=== PATIENT | male | born 1955 | race African-American/Black ===

== ENCOUNTER 2018-03-15 00:41 | Inpatient (IN) | payer MEDICARE, MEDICAID ==
[~2018-03-15] VITALS: Ht 172.7 cm; Wt 102.4 kg
[~2018-03-15 00:41] MED LIST: AMLO-512 GT; HYDR25TA84 PO; METO50 GT; MULT1CAP32 PO; SIMV-260 PO
[2018-03-15 00:59] LABS: GLUCOSE,POINT OF CARE 166 MG/DL (70-110)
[2018-03-15] MEDS ORDERED: DSS100 GT (01:12)
[2018-03-15] MEDS ORDERED: BACL5TAB GT (01:12)
[2018-03-15] MEDS ORDERED: VITAD1000 GT (01:12)
[2018-03-15] MEDS ORDERED: ATOR20TA86 GT (01:12)
[2018-03-15] MEDS ORDERED: LISI-661 GT (01:12)
[2018-03-15] MEDS ORDERED: ASPI-556 GT (01:12)
[2018-03-15] MEDS ORDERED: CLON.3P TD (01:12)
[2018-03-15] MEDS ORDERED: INSLAN SQ (01:12)
[2018-03-15 01:38] LABS: BASOPHILS % (AUTO) 0.4 % (0.0-2.0); EOSINOPHILS % (AUTO) 0.2 % (1.0-6.0); LYMPHOCYTES # (AUTO) 1.5 K/uL (1.0-4.8); LYMPHOCYTES % (AUTO) 11.7 % (22.0-44.0); MEAN CORPUSCULAR HEMOGLOBIN 27.9 pg (26.0-34.0); MEAN CORPUSCULAR HGB CONC 31.8 G/dL (31.0-37.0); MEAN CORPUSCULAR VOLUME 88 fL (80-100); MONOCYTES # (AUTO) 1.3 K/uL (0.1-1.0); MONOCYTES % (AUTO) 9.7 % (2.0-9.0); NEUTROPHILS # (AUTO) 10.4 K/uL (1.8-7.7); PLATELET COUNT (AUTO) 191 K/uL (150-450); RED BLOOD CELL COUNT(AUTO) 2.63 MIL/uL (4.50-5.90); RED CELL DISTRIBUTION WIDTH 17.2 % (11.5-14.5)
[2018-03-15 01:45] LABS: HEMATOCRIT 23.2 % (41-53); HEMOGLOBIN 7.5 g/dL (13.5-17.5)
[2018-03-15 01:50] LABS: APPEARANCE,URINE CLEAR (CLEAR); BILIRUBIN,URINE NEGATIVE (NEGATIVE); GLUCOSE, URINE (UA) NEGATIVE (NEGATIVE); KETONES,URINE NEGATIVE (NEGATIVE); LEUKOCYTE ESTERASE ,URINE NEGATIVE (NEGATIVE); NITRATE,URINE NEGATIVE (NEGATIVE); OCCULT BLOOD,URINE NEGATIVE (NEGATIVE); PROTEIN,URINE SEE CONFIRM (NEGATIVE)
[2018-03-15 01:53] LABS: PROTHROMBIN TIME 10.8 SEC (9.4-11.6)
[2018-03-15 01:55] LABS: ALBUMIN 2.3 g/dL (3.4-5.0); BILIRUBIN,TOTAL 0.1 mg/dL (0.1-1.0); CALCIUM, TOTAL 8.1 mg/dL (8.8-10.5); CREATININE 2.08 mg/dL (0.60-1.30); POTASSIUM 4.2 mmol/L (3.5-5.1); TOTAL PROTEIN, SERUM 5.3 g/dL (6.4-8.2)
[2018-03-15 01:56] LABS: LACTIC ACID 1.3 mmol/L (0.4-2.0)
[2018-03-15] MEDS ORDERED: SODIUM CHLORIDE 0.9% 1,000 ML IV ONE ×3 (02:00)
[2018-03-15 02:06] LABS: SULFOSALICYLIC ACID,URINE 1+ (Negative)
[2018-03-15 02:07] LABS: BACTERIA,URINE Rare /HPF (None Seen); RBC,URINE 0-2 /HPF (0-2); WBC,URINE 0-2 /HPF (0-5)
[2018-03-15 02:08] LABS: FINE GRANULAR CASTS,URINE 0-2 /LPF (None Seen); SQUAMOUS EPITHELIAL CELL,UR None Seen /LPF (None Seen)
[2018-03-15] MEDS ORDERED: SODIUM CHLORIDE 0.45% 1,000 ML IV ONE (02:45)
[2018-03-15] MEDS ORDERED: CefTRIAXone SODIUM 1 GM in DEXTROSE 5%-WATER 10 ML IV ONE (02:45)
[2018-03-15] MEDS ORDERED: ACETAMINOPHEN 1000 MG/ISO-OSM 100 ML IV ONE (03:15)
[2018-03-15 04:57] LABS: CALCIUM, TOTAL 7.9 mg/dL (8.8-10.5); CREATININE 2.13 mg/dL (0.60-1.30); POTASSIUM 4.2 mmol/L (3.5-5.1)
[2018-03-15] MEDS ORDERED: 0.9% SODIUM CHLORIDE 10 ML SYRINGE IVP PRN ×2 (05:45→13:00)
[2018-03-15] MEDS ORDERED: ACETAMINOPHEN 325 MG TABLET PO PRN (05:45)
[2018-03-15 08:19] LABS: GLUCOSE,POINT OF CARE 143 MG/DL (70-110)
[2018-03-15 10:00] VITALS: BP 142/98
[2018-03-15 12:00] VITALS: BP 149/99
[2018-03-15 12:20] LABS: CALCIUM, TOTAL 8.7 mg/dL (8.8-10.5); CREATININE 2.53 mg/dL (0.60-1.30); MAGNESIUM 2.8 mg/dL (1.80-2.40); PHOSPHORUS 4.2 mg/dL (2.5-4.9); POTASSIUM 4.2 mmol/L (3.5-5.1)
[2018-03-15] MEDS ORDERED: LISI-662 GT (12:54)
[2018-03-15] MEDS ORDERED: ONDANSETRON HCL 4 MG/2 ML VIAL IVP PRN (13:00)
[2018-03-15] MEDS: PANTOPRAZOLE SODIUM 40 MG/VIAL IVP SCH (13:14)
[2018-03-15] MEDS: SODIUM CHLORIDE 0.45% 1,000 ML IV SCH ×2 (13:15→20:43)
[2018-03-15] MEDS ORDERED: VANCOMYCIN HCL 1.5 GM in DEXTROSE 5%-WATER 250 ML IV ONE (13:30)
[2018-03-15] MEDS ORDERED: VANCOMYCIN HCL 1 GM/D5% WATER 200 ML IV ONE (13:30)
[2018-03-15] MEDS: PIPERACILLIN SODIUM/TAZOBACTAM 2.25 GM in DEXTROSE 5%-WATER 50 ML IV SCH ×2 (14:35→20:43)
[2018-03-15] MEDS: IPRATROPIUM BROMIDE 0.5 MG/2.5 ML NEB SOLUTION NEB SCH ×2 (14:47→19:40)
[2018-03-15] MEDS: ALBUTEROL SULFATE 2.5 MG/0.5 ML NEB SOLUTION NEB SCH ×2 (14:47→19:40)
[2018-03-15] MEDS ORDERED: SODIUM CHLORIDE 0.9% 250 ML IV ONE (15:10)
[2018-03-15 16:00] VITALS: BP 157/103
[2018-03-15] MEDS: HEPARIN SODIUM,PORCINE 5,000 UNITS/ML VIAL SQ SCH ×2 (16:03→23:59)
[2018-03-15 19:26] LABS: CALCIUM, TOTAL 8.2 mg/dL (8.8-10.5); CREATININE 2.8 mg/dL (0.60-1.30); POTASSIUM 3.8 mmol/L (3.5-5.1)
[2018-03-15 20:00] VITALS: BP 135/78
[2018-03-16] VITALS (16 sets, daily range): BP systolic 120–166; BP diastolic 72–90
[2018-03-16] MEDS: ALBUTEROL SULFATE 2.5 MG/0.5 ML NEB SOLUTION NEB SCH ×4 (01:51→20:09)
[2018-03-16] MEDS: IPRATROPIUM BROMIDE 0.5 MG/2.5 ML NEB SOLUTION NEB SCH ×4 (01:51→20:09)
[2018-03-16] MEDS: PIPERACILLIN SODIUM/TAZOBACTAM 2.25 GM in DEXTROSE 5%-WATER 50 ML IV SCH ×4 (02:11→20:50)
[2018-03-16 05:00] LABS: BASOPHILS % (AUTO) 0.8 % (0.0-2.0); EOSINOPHILS % (AUTO) 0 % (1.0-6.0); LYMPHOCYTES # (AUTO) 3.3 K/uL (1.0-4.8); LYMPHOCYTES % (AUTO) 13.9 % (22.0-44.0); MEAN CORPUSCULAR HEMOGLOBIN 27.9 pg (26.0-34.0); MEAN CORPUSCULAR HGB CONC 31.4 G/dL (31.0-37.0); MEAN CORPUSCULAR VOLUME 89 fL (80-100); MONOCYTES # (AUTO) 1.7 K/uL (0.1-1.0); MONOCYTES % (AUTO) 7.1 % (2.0-9.0); NEUTROPHILS # (AUTO) 18.5 K/uL (1.8-7.7); NEUTROPHILS % (AUTO) 78.2 % (40.0-70.0); PLATELET COUNT (AUTO) 192 K/uL (150-450); RED BLOOD CELL COUNT(AUTO) 1.98 MIL/uL (4.50-5.90); RED CELL DISTRIBUTION WIDTH 18.1 % (11.5-14.5)
[2018-03-16 05:11] LABS: ALBUMIN 2.4 g/dL (3.4-5.0); BILIRUBIN,TOTAL 0.2 mg/dL (0.1-1.0); CALCIUM, TOTAL 8.1 mg/dL (8.8-10.5); CREATININE 3.19 mg/dL (0.60-1.30); POTASSIUM 3.9 mmol/L (3.5-5.1); TOTAL PROTEIN, SERUM 5.4 g/dL (6.4-8.2)
[2018-03-16 05:54] LABS: HEMATOCRIT 17.6 % (41-53); HEMOGLOBIN 5.5 g/dL (13.5-17.5)
[2018-03-16] MEDS: SODIUM CHLORIDE 0.45% 1,000 ML IV SCH ×2 (05:55→15:52)
[2018-03-16] MEDS ORDERED: SODIUM CHLORIDE 0.9% 250 ML IV ONE (06:42)
[2018-03-16] MEDS ORDERED: VANCOMYCIN HCL 1 GM/D5% WATER 200 ML IV SCH (08:00)
[2018-03-16] MEDS: HEPARIN SODIUM,PORCINE 5,000 UNITS/ML VIAL SQ SCH ×2 (08:00→15:34)
[2018-03-16] MEDS: PANTOPRAZOLE SODIUM 40 MG/VIAL IVP SCH ×2 (08:48→20:50)
[2018-03-16] MEDS ORDERED: VANCOMYCIN HCL 1 GM/D5% WATER 200 ML IV PRN (10:00)
[2018-03-16 14:23] LABS: CALCIUM, TOTAL 8.1 mg/dL (8.8-10.5); CREATININE 3.26 mg/dL (0.60-1.30); MAGNESIUM 2.4 mg/dL (1.80-2.40); PHOSPHORUS 5.1 mg/dL (2.5-4.9); POTASSIUM 4.1 mmol/L (3.5-5.1)
[2018-03-16 17:48] LABS: BASOPHILS % (AUTO) 0.3 % (0.0-2.0); EOSINOPHILS % (AUTO) 0.1 % (1.0-6.0); HEMATOCRIT 25.6 % (41-53); HEMOGLOBIN 8.4 g/dL (13.5-17.5); LYMPHOCYTES % (AUTO) 13.2 % (22.0-44.0); MEAN CORPUSCULAR HEMOGLOBIN 29.1 pg (26.0-34.0); MEAN CORPUSCULAR HGB CONC 32.9 G/dL (31.0-37.0); MEAN CORPUSCULAR VOLUME 88 fL (80-100); MONOCYTES # (AUTO) 2.4 K/uL (0.1-1.0); MONOCYTES % (AUTO) 10.5 % (2.0-9.0); NEUTROPHILS # (AUTO) 17.2 K/uL (1.8-7.7); NEUTROPHILS % (AUTO) 75.9 % (40.0-70.0); PLATELET COUNT (AUTO) 182 K/uL (150-450); RED CELL DISTRIBUTION WIDTH 16.6 % (11.5-14.5)
[2018-03-16 17:57] LABS: % IRON SATURATION 23.8 % (30-44)
[2018-03-17] VITALS (17 sets, daily range): BP systolic 95–148; BP diastolic 60–96
[2018-03-17] MEDS: SODIUM CHLORIDE 0.45% 1,000 ML IV SCH (01:56)
[2018-03-17] MEDS: PIPERACILLIN SODIUM/TAZOBACTAM 2.25 GM in DEXTROSE 5%-WATER 50 ML IV SCH ×4 (01:57→20:41)
[2018-03-17] MEDS: ALBUTEROL SULFATE 2.5 MG/0.5 ML NEB SOLUTION NEB SCH ×4 (02:20→20:06)
[2018-03-17] MEDS: IPRATROPIUM BROMIDE 0.5 MG/2.5 ML NEB SOLUTION NEB SCH ×4 (02:20→20:06)
[2018-03-17 08:13] LABS: CALCIUM, TOTAL 7.9 mg/dL (8.8-10.5); CREATININE 3.12 mg/dL (0.60-1.30); POTASSIUM 3.4 mmol/L (3.5-5.1); VANCOMYCIN,RANDOM 17.6 mcg/mL (25.0-50.0)
[2018-03-17] MEDS ORDERED: SODIUM CHLORIDE 0.9% 250 ML IV ONE ×3 (09:08→18:08)
[2018-03-17] MEDS: HEPARIN SODIUM,PORCINE 5,000 UNITS/ML VIAL SQ SCH ×3 (09:11→16:00)
[2018-03-17] MEDS: PANTOPRAZOLE SODIUM 40 MG/VIAL IVP SCH (09:11)
[2018-03-17] MEDS ORDERED: VANCOMYCIN HCL 1 GM/D5% WATER 200 ML IV ONE (10:00)
[2018-03-17] MEDS: POTASSIUM CHL 10 MEQ/WATER 50 ML IV SCH ×3 (11:18→13:14)
[2018-03-17] MEDS: DEXTROSE 5%-WATER 1,000 ML IV SCH ×2 (11:19→20:42)
[2018-03-17 14:36] LABS: HEMOGLOBIN 4.9 g/dL (13.5-17.5)
[2018-03-17 14:37] LABS: HEMATOCRIT 15.5 % (41-53)
[2018-03-17] MEDS ORDERED: SODIUM CHLORIDE 0.9% 1,000 ML IV ONE (16:33)
[2018-03-17] MEDS: PANTOPRAZOLE SODIUM 80 MG in SODIUM CHLORIDE 0.9% 100 ML IV SCH (16:40)
[2018-03-18] VITALS: BP 127/86
[2018-03-18 00:03] LABS: HEMATOCRIT 25.6 % (41-53); HEMOGLOBIN 8.4 g/dL (13.5-17.5)
[2018-03-18] MEDS: PANTOPRAZOLE SODIUM 80 MG in SODIUM CHLORIDE 0.9% 100 ML IV SCH ×3 (00:56→21:58)
[2018-03-18] MEDS: IPRATROPIUM BROMIDE 0.5 MG/2.5 ML NEB SOLUTION NEB SCH ×4 (02:43→20:03)
[2018-03-18] MEDS: ALBUTEROL SULFATE 2.5 MG/0.5 ML NEB SOLUTION NEB SCH ×4 (02:43→20:03)
[2018-03-18] MEDS: PIPERACILLIN SODIUM/TAZOBACTAM 2.25 GM in DEXTROSE 5%-WATER 50 ML IV SCH ×4 (02:55→20:22)
[2018-03-18 04:00] VITALS: BP 135/78
[2018-03-18] MEDS ORDERED: PROPOFOL 1% 20 ML VIAL IVP ONE (04:04)
[2018-03-18] MEDS ORDERED: MIDAZOLAM HCL 2 MG/2 ML VIAL IVP ONE (04:04)
[2018-03-18 06:33] LABS: HEMATOCRIT 21.8 % (41-53); HEMOGLOBIN 7.2 g/dL (13.5-17.5); MEAN CORPUSCULAR HEMOGLOBIN 29.9 pg (26.0-34.0); MEAN CORPUSCULAR VOLUME 91 fL (80-100); PLATELET COUNT (AUTO) 155 K/uL (150-450); RED CELL DISTRIBUTION WIDTH 16.5 % (11.5-14.5)
[2018-03-18 07:16] LABS: CREATININE 3.01 mg/dL (0.60-1.30); POTASSIUM 3.4 mmol/L (3.5-5.1); VANCOMYCIN,RANDOM 21.9 mcg/mL (25.0-50.0)
[2018-03-18 07:37] LABS: BAND NEUTROPHILS % (MANUAL) 9 % (0-5); LYMPHOCYTES % (MANUAL) 16 % (22-44); MONOCYTES % (MANUAL) 1 % (2-9); SEGMENTED NEUTROPHILS % 74 % (40-70)
[2018-03-18 08:00] VITALS: BP 140/72
[2018-03-18] MEDS: HEPARIN SODIUM,PORCINE 5,000 UNITS/ML VIAL SQ SCH ×4 (08:00→23:47)
[2018-03-18] MEDS: DEXTROSE 5%-WATER 1,000 ML IV SCH ×3 (08:25→20:25)
[2018-03-18] MEDS ORDERED: POTASSIUM CHLORIDE 10% 40 MEQ/30 ML LIQUID UDCUP JT ONE (09:45)
[2018-03-18] MEDS ORDERED: POTASSIUM CHLORIDE 10% 40 MEQ/30 ML LIQUID UDCUP PEG ONE (11:00)
[2018-03-18 12:00] VITALS: BP 138/61
[2018-03-18 15:21] LABS: CREATININE,URINE RANDOM 53.3 mg/dL (30.0-125.0)
[2018-03-18 16:00] VITALS: BP 141/71
[2018-03-18 18:49] LABS: CALCIUM, TOTAL 7.6 mg/dL (8.8-10.5); CREATININE 2.89 mg/dL (0.60-1.30); POTASSIUM 3.5 mmol/L (3.5-5.1)
[2018-03-18 20:00] VITALS: BP 150/91
[2018-03-18] MEDS ORDERED: DEXTROSE 50%-WATER 25 GM/50 ML SYRINGE IVP PRN (20:00)
[2018-03-18] MEDS: INSULIN GLARGINE,HUM.REC.ANLOG 100 UNITS/ML SQ SCH (20:23)
[2018-03-19] VITALS (13 sets, daily range): BP systolic 133–167; BP diastolic 75–89
[2018-03-19] MEDS: IPRATROPIUM BROMIDE 0.5 MG/2.5 ML NEB SOLUTION NEB SCH ×4 (01:51→20:31)
[2018-03-19] MEDS: ALBUTEROL SULFATE 2.5 MG/0.5 ML NEB SOLUTION NEB SCH ×4 (01:51→20:31)
[2018-03-19] MEDS: PIPERACILLIN SODIUM/TAZOBACTAM 2.25 GM in DEXTROSE 5%-WATER 50 ML IV SCH ×4 (03:00→21:25)
[2018-03-19] MEDS: DEXTROSE 5%-WATER 1,000 ML IV SCH ×4 (04:22→21:26)
[2018-03-19 05:02] LABS: CALCIUM, TOTAL 8.2 mg/dL (8.8-10.5); CREATININE 2.83 mg/dL (0.60-1.30); POTASSIUM 3.4 mmol/L (3.5-5.1)
[2018-03-19] MEDS: INSULIN REGULAR, HUMAN 100 UNITS/ML SQ PRN (05:47)
[2018-03-19 07:23] LABS: HEMATOCRIT 21.2 % (41-53); MEAN CORPUSCULAR HEMOGLOBIN 30.4 pg (26.0-34.0); MEAN CORPUSCULAR HGB CONC 32.8 G/dL (31.0-37.0); MEAN CORPUSCULAR VOLUME 93 fL (80-100); PLATELET COUNT (AUTO) 165 K/uL (150-450); RED BLOOD CELL COUNT(AUTO) 2.28 MIL/uL (4.50-5.90)
[2018-03-19] MEDS: HEPARIN SODIUM,PORCINE 5,000 UNITS/ML VIAL SQ SCH ×2 (07:25→14:57)
[2018-03-19 07:28] LABS: HEMOGLOBIN 6.9 g/dL (13.5-17.5)
[2018-03-19] MEDS ORDERED: VANCOMYCIN HCL 1.5 GM in DEXTROSE 5%-WATER 250 ML IV SCH (08:00)
[2018-03-19] MEDS: PANTOPRAZOLE SODIUM 80 MG in SODIUM CHLORIDE 0.9% 100 ML IV SCH ×2 (08:04→18:00)
[2018-03-19 08:10] LABS: GLUCOSE,POINT OF CARE 162 MG/DL (70-110)
[2018-03-19 08:10] LABS: GLUCOSE,POINT OF CARE 149 MG/DL (70-110)
[2018-03-19 08:10] LABS: GLUCOSE,POINT OF CARE 139 MG/DL (70-110)
[2018-03-19 08:21] LABS: BAND NEUTROPHILS % (MANUAL) 6 % (0-5); LYMPHOCYTES % (MANUAL) 13 % (22-44); MONOCYTES % (MANUAL) 7 % (2-9); SEGMENTED NEUTROPHILS % 74 % (40-70)
[2018-03-19] MEDS ORDERED: POTASSIUM CHLORIDE 10% 40 MEQ/30 ML LIQUID UDCUP JT ONE ×2 (11:30→14:00)
[2018-03-19 14:00] LABS: GLUCOSE,POINT OF CARE 138 MG/DL (70-110)
[2018-03-19] MEDS ORDERED: SODIUM CHLORIDE 0.9% 1,000 ML IV ONE (14:36)
[2018-03-19] MEDS: INSULIN GLARGINE,HUM.REC.ANLOG 100 UNITS/ML SQ SCH (21:27)
[2018-03-19 22:23] LABS: HEMATOCRIT 22.8 % (41-53); HEMOGLOBIN 7.6 g/dL (13.5-17.5)
[2018-03-19 22:44] LABS: CALCIUM, TOTAL 7.5 mg/dL (8.8-10.5); CREATININE 2.56 mg/dL (0.60-1.30); POTASSIUM 4.1 mmol/L (3.5-5.1)
[2018-03-20] VITALS (7 sets, daily range): BP systolic 169–187; BP diastolic 76–116
[2018-03-20] MEDS: HEPARIN SODIUM,PORCINE 5,000 UNITS/ML VIAL SQ SCH ×2 (01:40→08:00)
[2018-03-20] MEDS: PIPERACILLIN SODIUM/TAZOBACTAM 2.25 GM in DEXTROSE 5%-WATER 50 ML IV SCH ×4 (01:40→20:40)
[2018-03-20] MEDS: INSULIN REGULAR, HUMAN 100 UNITS/ML SQ PRN ×3 (01:42→18:15)
[2018-03-20] MEDS: ALBUTEROL SULFATE 2.5 MG/0.5 ML NEB SOLUTION NEB SCH ×4 (02:28→20:04)
[2018-03-20] MEDS: IPRATROPIUM BROMIDE 0.5 MG/2.5 ML NEB SOLUTION NEB SCH ×4 (02:28→20:04)
[2018-03-20] MEDS: PANTOPRAZOLE SODIUM 80 MG in SODIUM CHLORIDE 0.9% 100 ML IV SCH ×2 (03:16→14:31)
[2018-03-20] MEDS: HydrALAZINE HCL 20 MG/ML VIAL IVP PRN ×3 (03:16→15:53)
[2018-03-20] MEDS: DEXTROSE 5%-WATER 1,000 ML IV SCH ×4 (03:51→20:41)
[2018-03-20 05:08] LABS: HEMATOCRIT 24.4 % (41-53); HEMOGLOBIN 8.2 g/dL (13.5-17.5); MEAN CORPUSCULAR HEMOGLOBIN 30.3 pg (26.0-34.0); MEAN CORPUSCULAR HGB CONC 33.8 G/dL (31.0-37.0); MEAN CORPUSCULAR VOLUME 90 fL (80-100); PLATELET COUNT (AUTO) 176 K/uL (150-450); RED BLOOD CELL COUNT(AUTO) 2.71 MIL/uL (4.50-5.90); RED CELL DISTRIBUTION WIDTH 15.9 % (11.5-14.5)
[2018-03-20 05:27] LABS: CALCIUM, TOTAL 8.2 mg/dL (8.8-10.5); CREATININE 2.33 mg/dL (0.60-1.30)
[2018-03-20 05:41] LABS: BAND NEUTROPHILS % (MANUAL) 2 % (0-5); EOSINOPHILS % (MANUAL) 2 % (1-6); LYMPHOCYTES % (MANUAL) 12 % (22-44); MONOCYTES % (MANUAL) 10 % (2-9); SEGMENTED NEUTROPHILS % 74 % (40-70)
[2018-03-20] MEDS ORDERED: MORPHINE SULFATE 2 MG/ML SYRINGE IVP PRN (06:00)
[2018-03-20 06:05] LABS: GLUCOSE,POINT OF CARE 133 MG/DL (70-110)
[2018-03-20 06:09] LABS: GLUCOSE,POINT OF CARE 125 MG/DL (70-110)
[2018-03-20] MEDS: ACETAMINOPHEN 650 MG/20.3 ML SOLUTION UDCUP JT PRN (06:10)
[2018-03-20 07:01] LABS: GLUCOSE,POINT OF CARE 157 MG/DL (70-110)
[2018-03-20 11:22] LABS: GLUCOSE,POINT OF CARE 115 MG/DL (70-110)
[2018-03-20] MEDS: AmLODIPine BESYLATE 10 MG TABLET PO SCH (12:31)
[2018-03-20] MEDS: HydrALAZINE HCL 25 MG TABLET PO SCH ×3 (14:11→20:40)
[2018-03-20] MEDS: METOPROLOL TARTRATE 25 MG TABLET PO SCH ×2 (14:11→20:40)
[2018-03-20] MEDS: ACETYLCYSTEINE 20% 200 MG/ML 4 ML NEB SOLUTION NEB SCH (14:51)
[2018-03-20] MEDS ORDERED: LORazepam 2 MG/ML VIAL IVP PRN (15:45)
[2018-03-20] MEDS: INSULIN GLARGINE,HUM.REC.ANLOG 100 UNITS/ML SQ SCH (20:42)
[2018-03-21] VITALS (7 sets, daily range): BP systolic 136–169; BP diastolic 53–83
[2018-03-21] MEDS: PANTOPRAZOLE SODIUM 80 MG in SODIUM CHLORIDE 0.9% 100 ML IV SCH ×3 (00:16→20:13)
[2018-03-21] MEDS: ALBUTEROL SULFATE 2.5 MG/0.5 ML NEB SOLUTION NEB PRN (01:16)
[2018-03-21] MEDS: IPRATROPIUM BROMIDE 0.5 MG/2.5 ML NEB SOLUTION NEB PRN (01:16)
[2018-03-21] MEDS: ACETYLCYSTEINE 20% 200 MG/ML 4 ML NEB SOLUTION NEB SCH ×3 (01:16→14:06)
[2018-03-21] MEDS: ALBUTEROL SULFATE 2.5 MG/0.5 ML NEB SOLUTION NEB SCH ×4 (01:51→19:32)
[2018-03-21] MEDS: IPRATROPIUM BROMIDE 0.5 MG/2.5 ML NEB SOLUTION NEB SCH ×4 (01:52→19:32)
[2018-03-21] MEDS: PIPERACILLIN SODIUM/TAZOBACTAM 2.25 GM in DEXTROSE 5%-WATER 50 ML IV SCH ×4 (03:14→20:12)
[2018-03-21] MEDS: DEXTROSE 5%-WATER 1,000 ML IV SCH ×3 (03:15→15:51)
[2018-03-21 05:26] LABS: CALCIUM, TOTAL 7.9 mg/dL (8.8-10.5); POTASSIUM 3.5 mmol/L (3.5-5.1); VANCOMYCIN,RANDOM 14.1 mcg/mL (25.0-50.0)
[2018-03-21] MEDS: HydrALAZINE HCL 20 MG/ML VIAL IVP PRN ×2 (06:11→20:14)
[2018-03-21] MEDS: ACETAMINOPHEN 650 MG/20.3 ML SOLUTION UDCUP JT PRN (07:55)
[2018-03-21] MEDS: METOPROLOL TARTRATE 25 MG TABLET PO SCH ×2 (08:21→20:14)
[2018-03-21] MEDS: HydrALAZINE HCL 25 MG TABLET PO SCH ×4 (08:21→20:14)
[2018-03-21] MEDS: AmLODIPine BESYLATE 10 MG TABLET PO SCH (08:21)
[2018-03-21] MEDS: VANCOMYCIN HCL 750 MG in DEXTROSE 5%-WATER 250 ML IV SCH (08:24)
[2018-03-21] MEDS: METOCLOPRAMIDE HCL 5 MG/ML 2 ML VIAL IVP SCH ×3 (08:24→20:13)
[2018-03-21] MEDS ORDERED: EPOETIN ALFA 10,000 UNITS/ML VIAL SQ ONE (12:00)
[2018-03-21 12:40] LABS: GLUCOSE,POINT OF CARE 133 MG/DL (70-110)
[2018-03-21 12:40] LABS: GLUCOSE,POINT OF CARE 115 MG/DL (70-110)
[2018-03-21 14:06] LABS: GLUCOSE,POINT OF CARE 142 MG/DL (70-110)
[2018-03-21] MEDS: INSULIN REGULAR, HUMAN 100 UNITS/ML SQ PRN (18:18)
[2018-03-21 18:36] LABS: GLUCOSE,POINT OF CARE 137 MG/DL (70-110)
[2018-03-21] MEDS: INSULIN GLARGINE,HUM.REC.ANLOG 100 UNITS/ML SQ SCH (20:15)
[2018-03-22] MEDS: ACETYLCYSTEINE 20% 200 MG/ML 4 ML NEB SOLUTION NEB SCH ×3 (00:08→15:11)
[2018-03-22 00:42] LABS: GLUCOSE,POINT OF CARE 133 MG/DL (70-110)
[2018-03-22] MEDS: DEXTROSE 5%-WATER 1,000 ML IV SCH ×2 (02:08→13:08)
[2018-03-22] MEDS: PIPERACILLIN SODIUM/TAZOBACTAM 2.25 GM in DEXTROSE 5%-WATER 50 ML IV SCH ×3 (02:11→14:58)
[2018-03-22] MEDS: METOCLOPRAMIDE HCL 5 MG/ML 2 ML VIAL IVP SCH ×4 (02:14→20:01)
[2018-03-22] MEDS: ALBUTEROL SULFATE 2.5 MG/0.5 ML NEB SOLUTION NEB SCH ×4 (02:54→19:31)
[2018-03-22] MEDS: IPRATROPIUM BROMIDE 0.5 MG/2.5 ML NEB SOLUTION NEB SCH ×4 (02:54→19:31)
[2018-03-22 03:48] VITALS: BP 129/77
[2018-03-22] MEDS: PANTOPRAZOLE SODIUM 80 MG in SODIUM CHLORIDE 0.9% 100 ML IV SCH ×2 (05:18→17:00)
[2018-03-22 06:08] LABS: BASOPHILS % (AUTO) 0.2 % (0.0-2.0); EOSINOPHILS % (AUTO) 1.4 % (1.0-6.0); HEMATOCRIT 21.9 % (41-53); HEMOGLOBIN 7.3 g/dL (13.5-17.5); LYMPHOCYTES # (AUTO) 0.9 K/uL (1.0-4.8); LYMPHOCYTES % (AUTO) 6.8 % (22.0-44.0); MEAN CORPUSCULAR HEMOGLOBIN 30.4 pg (26.0-34.0); MEAN CORPUSCULAR HGB CONC 33.4 G/dL (31.0-37.0); MEAN CORPUSCULAR VOLUME 91 fL (80-100); MONOCYTES # (AUTO) 1.2 K/uL (0.1-1.0); MONOCYTES % (AUTO) 9.6 % (2.0-9.0); NEUTROPHILS # (AUTO) 10.5 K/uL (1.8-7.7); PLATELET COUNT (AUTO) 205 K/uL (150-450); RED CELL DISTRIBUTION WIDTH 16.7 % (11.5-14.5)
[2018-03-22 06:21] LABS: CALCIUM, TOTAL 8.2 mg/dL (8.8-10.5); CREATININE 1.89 mg/dL (0.60-1.30); MAGNESIUM 2.1 mg/dL (1.80-2.40); PHOSPHORUS 2.8 mg/dL (2.5-4.9); POTASSIUM 3.4 mmol/L (3.5-5.1)
[2018-03-22 07:37] VITALS: BP 150/76
[2018-03-22] MEDS: AmLODIPine BESYLATE 10 MG TABLET PO SCH (08:34)
[2018-03-22] MEDS: HydrALAZINE HCL 25 MG TABLET PO SCH ×4 (08:36→20:01)
[2018-03-22] MEDS: METOPROLOL TARTRATE 25 MG TABLET PO SCH ×2 (08:36→20:01)
[2018-03-22] MEDS ORDERED: POTASSIUM CHLORIDE 10 MEQ ER TABLET PO ONE (09:00)
[2018-03-22] MEDS: VANCOMYCIN HCL 750 MG in DEXTROSE 5%-WATER 250 ML IV SCH (09:39)
[2018-03-22 11:31] VITALS: BP 142/73
[2018-03-22 15:57] LABS: GLUCOSE,POINT OF CARE 135 MG/DL (70-110)
[2018-03-22 16:11] VITALS: BP 154/72
[2018-03-22 16:19] LABS: GLUCOSE,POINT OF CARE 117 MG/DL (70-110)
[2018-03-22 16:19] LABS: GLUCOSE,POINT OF CARE 121 MG/DL (70-110)
[2018-03-22 19:53] VITALS: BP 146/78
[2018-03-22] MEDS: LEVOFLOXACIN 750 MG/D5% WATER 150 ML IV SCH (20:04)
[2018-03-22] MEDS: INSULIN GLARGINE,HUM.REC.ANLOG 100 UNITS/ML SQ SCH (20:14)
[2018-03-22 23:56] VITALS: BP 155/78
[2018-03-23] VITALS (7 sets, daily range): BP systolic 120–177; BP diastolic 67–76
[2018-03-23] MEDS: ACETYLCYSTEINE 20% 200 MG/ML 4 ML NEB SOLUTION NEB SCH ×4 (00:05→23:52)
[2018-03-23] MEDS: PANTOPRAZOLE SODIUM 80 MG in SODIUM CHLORIDE 0.9% 100 ML IV SCH ×3 (01:18→20:53)
[2018-03-23 01:54] LABS: GLUCOMETER DEV NAME(LOC) 5S 1M; GLUCOSE,POINT OF CARE 126 MG/DL (70-110)
[2018-03-23 01:54] LABS: GLUCOMETER DEV NAME(LOC) 5S 1M; GLUCOSE,POINT OF CARE 131 MG/DL (70-110)
[2018-03-23 01:54] LABS: GLUCOMETER DEV NAME(LOC) 5S 2Q; GLUCOSE,POINT OF CARE 136 MG/DL (70-110)
[2018-03-23 01:55] LABS: GLUCOMETER DEV NAME(LOC) 5S 2Q; GLUCOSE,POINT OF CARE 149 MG/DL (70-110)
[2018-03-23 01:55] LABS: GLUCOMETER DEV NAME(LOC) 5N 2S; GLUCOSE,POINT OF CARE 131 MG/DL (70-110)
[2018-03-23 01:55] LABS: GLUCOMETER DEV NAME(LOC) 5N 1P; GLUCOSE,POINT OF CARE 130 MG/DL (70-110)
[2018-03-23] MEDS: METOCLOPRAMIDE HCL 5 MG/ML 2 ML VIAL IVP SCH ×4 (02:17→20:11)
[2018-03-23] MEDS: ALBUTEROL SULFATE 2.5 MG/0.5 ML NEB SOLUTION NEB SCH ×4 (02:24→19:37)
[2018-03-23] MEDS: IPRATROPIUM BROMIDE 0.5 MG/2.5 ML NEB SOLUTION NEB SCH ×4 (02:25→19:37)
[2018-03-23 06:20] LABS: CALCIUM, TOTAL 8.1 mg/dL (8.8-10.5); CREATININE 1.85 mg/dL (0.60-1.30); PHOSPHORUS 2.7 mg/dL (2.5-4.9); POTASSIUM 3.8 mmol/L (3.5-5.1)
[2018-03-23] MEDS: DEXTROSE 5%-WATER 1,000 ML IV SCH (06:42)
[2018-03-23] MEDS: HydrALAZINE HCL 25 MG TABLET PO SCH ×4 (08:17→20:13)
[2018-03-23] MEDS: AmLODIPine BESYLATE 10 MG TABLET PO SCH (08:17)
[2018-03-23] MEDS: METOPROLOL TARTRATE 25 MG TABLET PO SCH ×2 (08:17→20:11)
[2018-03-23] MEDS: ACETAMINOPHEN 650 MG/20.3 ML SOLUTION UDCUP JT PRN ×2 (11:12→23:45)
[2018-03-23] MEDS: LEVOFLOXACIN 750 MG/D5% WATER 150 ML IV SCH (20:11)
[2018-03-23] MEDS: INSULIN GLARGINE,HUM.REC.ANLOG 100 UNITS/ML SQ SCH (20:13)
[2018-03-23 20:24] LABS: GLUCOMETER DEV NAME(LOC) 5S 2Q; GLUCOSE,POINT OF CARE 114 MG/DL (70-110)
[2018-03-23 20:24] LABS: GLUCOMETER DEV NAME(LOC) 5S 2Q; GLUCOSE,POINT OF CARE 126 MG/DL (70-110)
[2018-03-23] MEDS: ALBUTEROL SULFATE 2.5 MG/0.5 ML NEB SOLUTION NEB PRN (23:52)
[2018-03-24] MEDS: METOCLOPRAMIDE HCL 5 MG/ML 2 ML VIAL IVP SCH ×4 (02:06→20:01)
[2018-03-24] MEDS: ALBUTEROL SULFATE 2.5 MG/0.5 ML NEB SOLUTION NEB SCH ×4 (02:16→20:09)
[2018-03-24] MEDS: IPRATROPIUM BROMIDE 0.5 MG/2.5 ML NEB SOLUTION NEB SCH ×4 (02:16→20:09)
[2018-03-24] MEDS: DEXTROSE 5%-WATER 1,000 ML IV SCH (03:07)
[2018-03-24] MEDS: PANTOPRAZOLE SODIUM 80 MG in SODIUM CHLORIDE 0.9% 100 ML IV SCH ×2 (05:27→15:32)
[2018-03-24 05:35] VITALS: BP 132/77
[2018-03-24 07:23] VITALS: BP 147/80
[2018-03-24] MEDS: ACETYLCYSTEINE 20% 200 MG/ML 4 ML NEB SOLUTION NEB SCH ×2 (08:02→14:55)
[2018-03-24] MEDS: METOPROLOL TARTRATE 25 MG TABLET PO SCH ×2 (08:46→20:01)
[2018-03-24] MEDS: HydrALAZINE HCL 25 MG TABLET PO SCH ×4 (08:46→20:22)
[2018-03-24] MEDS: AmLODIPine BESYLATE 10 MG TABLET PO SCH (08:46)
[2018-03-24 11:16] VITALS: BP 148/79
[2018-03-24 11:54] LABS: GLUCOMETER DEV NAME(LOC) 5N 1P; GLUCOSE,POINT OF CARE 113 MG/DL (70-110)
[2018-03-24 12:09] LABS: BASOPHILS % (AUTO) 0.4 % (0.0-2.0); EOSINOPHILS % (AUTO) 2.2 % (1.0-6.0); HEMATOCRIT 21.2 % (41-53); HEMOGLOBIN 7.2 g/dL (13.5-17.5); LYMPHOCYTES # (AUTO) 0.7 K/uL (1.0-4.8); LYMPHOCYTES % (AUTO) 6.8 % (22.0-44.0); MEAN CORPUSCULAR HEMOGLOBIN 30.6 pg (26.0-34.0); MEAN CORPUSCULAR HGB CONC 33.9 G/dL (31.0-37.0); MEAN CORPUSCULAR VOLUME 90 fL (80-100); MONOCYTES # (AUTO) 0.9 K/uL (0.1-1.0); MONOCYTES % (AUTO) 8.8 % (2.0-9.0); NEUTROPHILS # (AUTO) 8.6 K/uL (1.8-7.7); NEUTROPHILS % (AUTO) 81.8 % (40.0-70.0); PLATELET COUNT (AUTO) 262 K/uL (150-450); RED BLOOD CELL COUNT(AUTO) 2.35 MIL/uL (4.50-5.90); RED CELL DISTRIBUTION WIDTH 16.5 % (11.5-14.5)
[2018-03-24 12:20] LABS: CALCIUM, TOTAL 7.8 mg/dL (8.8-10.5); CREATININE 1.8 mg/dL (0.60-1.30)
[2018-03-24 12:24] LABS: BILIRUBIN,TOTAL 0.2 mg/dL (0.1-1.0); TOTAL PROTEIN, SERUM 5.5 g/dL (6.4-8.2)
[2018-03-24 19:47] VITALS: BP 118/84
[2018-03-24 19:59] LABS: GLUCOMETER DEV NAME(LOC) 5S 2Q; GLUCOSE,POINT OF CARE 110 MG/DL (70-110)
[2018-03-24] MEDS: LEVOFLOXACIN 750 MG/D5% WATER 150 ML IV SCH (20:02)
[2018-03-24] MEDS: INSULIN GLARGINE,HUM.REC.ANLOG 100 UNITS/ML SQ SCH (20:18)
[2018-03-25] VITALS (7 sets, daily range): BP systolic 127–163; BP diastolic 72–90
[2018-03-25] MEDS: ACETYLCYSTEINE 20% 200 MG/ML 4 ML NEB SOLUTION NEB SCH ×4 (01:01→23:42)
[2018-03-25] MEDS: ALBUTEROL SULFATE 2.5 MG/0.5 ML NEB SOLUTION NEB SCH ×4 (01:01→20:14)
[2018-03-25] MEDS: IPRATROPIUM BROMIDE 0.5 MG/2.5 ML NEB SOLUTION NEB SCH ×4 (01:01→20:14)
[2018-03-25] MEDS: DEXTROSE 5%-WATER 1,000 ML IV SCH ×2 (02:00→20:16)
[2018-03-25] MEDS: PANTOPRAZOLE SODIUM 80 MG in SODIUM CHLORIDE 0.9% 100 ML IV SCH ×3 (02:00→22:54)
[2018-03-25] MEDS: METOCLOPRAMIDE HCL 5 MG/ML 2 ML VIAL IVP SCH ×4 (02:01→20:16)
[2018-03-25 06:00] LABS: GLUCOMETER DEV NAME(LOC) 5N 2S; GLUCOSE,POINT OF CARE 122 MG/DL (70-110)
[2018-03-25 06:00] LABS: GLUCOMETER DEV NAME(LOC) 5N 2S; GLUCOSE,POINT OF CARE 121 MG/DL (70-110)
[2018-03-25 06:00] LABS: GLUCOMETER DEV NAME(LOC) 5N 2S; GLUCOSE,POINT OF CARE 126 MG/DL (70-110)
[2018-03-25 06:00] LABS: GLUCOMETER DEV NAME(LOC) 5N 2S; GLUCOSE,POINT OF CARE 106 MG/DL (70-110)
[2018-03-25 06:00] LABS: GLUCOMETER DEV NAME(LOC) 5S 1M; GLUCOSE,POINT OF CARE 121 MG/DL (70-110)
[2018-03-25 06:00] LABS: GLUCOMETER DEV NAME(LOC) 5N 2S; GLUCOSE,POINT OF CARE 106 MG/DL (70-110)
[2018-03-25 07:02] LABS: BASOPHILS % (AUTO) 0.3 % (0.0-2.0); EOSINOPHILS % (AUTO) 2.6 % (1.0-6.0); HEMATOCRIT 21.9 % (41-53); HEMOGLOBIN 7.4 g/dL (13.5-17.5); LYMPHOCYTES # (AUTO) 0.9 K/uL (1.0-4.8); LYMPHOCYTES % (AUTO) 8.3 % (22.0-44.0); MEAN CORPUSCULAR HEMOGLOBIN 30.1 pg (26.0-34.0); MEAN CORPUSCULAR HGB CONC 33.8 G/dL (31.0-37.0); MEAN CORPUSCULAR VOLUME 89 fL (80-100); MONOCYTES % (AUTO) 9.6 % (2.0-9.0); NEUTROPHILS # (AUTO) 8.4 K/uL (1.8-7.7); NEUTROPHILS % (AUTO) 79.2 % (40.0-70.0); PLATELET COUNT (AUTO) 309 K/uL (150-450); RED BLOOD CELL COUNT(AUTO) 2.46 MIL/uL (4.50-5.90); RED CELL DISTRIBUTION WIDTH 16.3 % (11.5-14.5)
[2018-03-25 07:18] LABS: CREATININE 1.8 mg/dL (0.60-1.30); MAGNESIUM 1.9 mg/dL (1.80-2.40); PHOSPHORUS 2.5 mg/dL (2.5-4.9); POTASSIUM 4.2 mmol/L (3.5-5.1)
[2018-03-25] MEDS: HydrALAZINE HCL 25 MG TABLET PO SCH ×4 (07:59→20:17)
[2018-03-25] MEDS: AmLODIPine BESYLATE 10 MG TABLET PO SCH (07:59)
[2018-03-25] MEDS: METOPROLOL TARTRATE 25 MG TABLET PO SCH ×2 (08:00→20:16)
[2018-03-25 16:49] LABS: GLUCOMETER DEV NAME(LOC) 5N 1P; GLUCOSE,POINT OF CARE 108 MG/DL (70-110)
[2018-03-25 16:50] LABS: GLUCOMETER DEV NAME(LOC) 5S 2Q; GLUCOSE,POINT OF CARE 113 MG/DL (70-110)
[2018-03-25] MEDS: LEVOFLOXACIN 750 MG/D5% WATER 150 ML IV SCH (20:15)
[2018-03-25] MEDS: ACETAMINOPHEN 650 MG/20.3 ML SOLUTION UDCUP JT PRN (20:18)
[2018-03-25] MEDS: ALBUTEROL SULFATE 2.5 MG/0.5 ML NEB SOLUTION NEB PRN (23:43)
[2018-03-25] MEDS: IPRATROPIUM BROMIDE 0.5 MG/2.5 ML NEB SOLUTION NEB PRN (23:43)
[2018-03-26] MEDS: INSULIN GLARGINE,HUM.REC.ANLOG 100 UNITS/ML SQ SCH ×2 (00:16→23:43)
[2018-03-26] MEDS: ALBUTEROL SULFATE 2.5 MG/0.5 ML NEB SOLUTION NEB SCH ×4 (02:23→19:31)
[2018-03-26] MEDS: IPRATROPIUM BROMIDE 0.5 MG/2.5 ML NEB SOLUTION NEB SCH ×4 (02:24→19:31)
[2018-03-26] MEDS: METOCLOPRAMIDE HCL 5 MG/ML 2 ML VIAL IVP SCH ×4 (02:37→20:59)
[2018-03-26 04:52] VITALS: BP 158/66
[2018-03-26] MEDS: HydrALAZINE HCL 20 MG/ML VIAL IVP PRN ×2 (05:05→18:20)
[2018-03-26 06:21] LABS: BASOPHILS % (AUTO) 0.3 % (0.0-2.0); EOSINOPHILS % (AUTO) 1.9 % (1.0-6.0); HEMATOCRIT 21.4 % (41-53); HEMOGLOBIN 7.2 g/dL (13.5-17.5); LYMPHOCYTES % (AUTO) 8.8 % (22.0-44.0); MEAN CORPUSCULAR HEMOGLOBIN 30.1 pg (26.0-34.0); MEAN CORPUSCULAR HGB CONC 33.8 G/dL (31.0-37.0); MEAN CORPUSCULAR VOLUME 89 fL (80-100); MONOCYTES % (AUTO) 8.4 % (2.0-9.0); NEUTROPHILS # (AUTO) 9.6 K/uL (1.8-7.7); NEUTROPHILS % (AUTO) 80.6 % (40.0-70.0); PLATELET COUNT (AUTO) 317 K/uL (150-450); RED CELL DISTRIBUTION WIDTH 16.3 % (11.5-14.5)
[2018-03-26 06:50] LABS: CREATININE 1.75 mg/dL (0.60-1.30); MAGNESIUM 1.9 mg/dL (1.80-2.40); PHOSPHORUS 2.9 mg/dL (2.5-4.9); POTASSIUM 4.1 mmol/L (3.5-5.1)
[2018-03-26 07:35] VITALS: BP 173/82
[2018-03-26] MEDS: ACETYLCYSTEINE 20% 200 MG/ML 4 ML NEB SOLUTION NEB SCH ×2 (08:13→15:15)
[2018-03-26] MEDS: HydrALAZINE HCL 25 MG TABLET PO SCH ×4 (08:42→21:00)
[2018-03-26] MEDS: METOPROLOL TARTRATE 25 MG TABLET PO SCH ×2 (08:42→21:00)
[2018-03-26] MEDS: AmLODIPine BESYLATE 10 MG TABLET PO SCH (08:42)
[2018-03-26] MEDS: PANTOPRAZOLE SODIUM 80 MG in SODIUM CHLORIDE 0.9% 100 ML IV SCH ×2 (08:48→18:20)
[2018-03-26 11:47] VITALS: BP 192/82
[2018-03-26 12:20] LABS: GLUCOMETER DEV NAME(LOC) 5N 1P; GLUCOSE,POINT OF CARE 125 MG/DL (70-110)
[2018-03-26 12:20] LABS: GLUCOMETER DEV NAME(LOC) 5N 1P; GLUCOSE,POINT OF CARE 132 MG/DL (70-110)
[2018-03-26 12:20] LABS: GLUCOMETER DEV NAME(LOC) 5N 1P; GLUCOSE,POINT OF CARE 119 MG/DL (70-110)
[2018-03-26] MEDS: ACETAMINOPHEN 650 MG/20.3 ML SOLUTION UDCUP JT PRN (13:04)
[2018-03-26 14:41] VITALS: BP 153/63
[2018-03-26 15:40] VITALS: BP 180/87
[2018-03-26] MEDS: DEXTROSE 5%-WATER 1,000 ML IV SCH (16:09)
[2018-03-26 21:00] VITALS: BP 174/79
[2018-03-26] MEDS: LEVOFLOXACIN 750 MG/D5% WATER 150 ML IV SCH (21:00)
[2018-03-27] VITALS: BP 161/96
[2018-03-27] MEDS: ALBUTEROL SULFATE 2.5 MG/0.5 ML NEB SOLUTION NEB PRN (00:01)
[2018-03-27] MEDS: ACETYLCYSTEINE 20% 200 MG/ML 4 ML NEB SOLUTION NEB SCH ×3 (00:01→15:25)
[2018-03-27] MEDS: HydrALAZINE HCL 20 MG/ML VIAL IVP PRN (01:06)
[2018-03-27] MEDS: IPRATROPIUM BROMIDE 0.5 MG/2.5 ML NEB SOLUTION NEB SCH ×3 (02:16→15:25)
[2018-03-27] MEDS: ALBUTEROL SULFATE 2.5 MG/0.5 ML NEB SOLUTION NEB SCH ×3 (02:16→15:25)
[2018-03-27] MEDS: METOCLOPRAMIDE HCL 5 MG/ML 2 ML VIAL IVP SCH ×3 (02:45→16:33)
[2018-03-27 04:13] VITALS: BP 174/89
[2018-03-27] MEDS: PANTOPRAZOLE SODIUM 80 MG in SODIUM CHLORIDE 0.9% 100 ML IV SCH ×2 (05:41→16:35)
[2018-03-27 07:32] VITALS: BP 172/75
[2018-03-27 09:47] VITALS: BP 139/93
[2018-03-27] MEDS: HydrALAZINE HCL 25 MG TABLET PO SCH ×3 (09:49→16:33)
[2018-03-27] MEDS: METOPROLOL TARTRATE 25 MG TABLET PO SCH (09:49)
[2018-03-27] MEDS: AmLODIPine BESYLATE 10 MG TABLET PO SCH (11:05)
[2018-03-27 11:11] VITALS: BP 157/86
[2018-03-27] MEDS: DEXTROSE 5%-WATER 1,000 ML IV SCH (13:48)
[2018-03-27 16:34] VITALS: BP 136/80
[2018-03-28 20:35] LABS: GLUCOMETER DEV NAME(LOC) 5S 1M; GLUCOSE,POINT OF CARE 125 MG/DL (70-110)
[2018-03-28 20:35] LABS: GLUCOMETER DEV NAME(LOC) 5S 1M; GLUCOSE,POINT OF CARE 133 MG/DL (70-110)
[2018-03-28 20:35] LABS: GLUCOMETER DEV NAME(LOC) 5S 1M; GLUCOSE,POINT OF CARE 136 MG/DL (70-110)
[2018-03-29 13:04] LABS: GLUCOMETER DEV NAME(LOC) 5S 2Q; GLUCOSE,POINT OF CARE 126 MG/DL (70-110)
[2018-03-29 13:04] LABS: GLUCOMETER DEV NAME(LOC) 5S 2Q; GLUCOSE,POINT OF CARE 113 MG/DL (70-110)
[2018-03-29 13:04] LABS: GLUCOMETER DEV NAME(LOC) 5S 2Q; GLUCOSE,POINT OF CARE 120 MG/DL (70-110)
== END 2018-03-27 23:40 | DRG 871 ==
LOC: EMS 00:42 → ICU 05:30 → 5S 03-21 22:15
PROVIDERS: ADMIT Internal Medicine; ATTEND Internal Medicine
PROC: 30233N1 Transfusion of Nonautologous Red Blood Cells into Peripheral Vein, Percutaneous Approach (ICD-10-PCS; 2018-03-16)
PROC: 0DJ08ZZ Inspection of Upper Intestinal Tract, Via Natural or Artificial Opening Endoscopic (ICD-10-PCS; principal; 2018-03-17 16:30)
PROC: B54NZZA Ultrasonography of Left Upper Extremity Veins, Guidance (ICD-10-PCS; 2018-03-25)
PROC: 05HY33Z Insertion of Infusion Device into Upper Vein, Percutaneous Approach (ICD-10-PCS; 2018-03-25)
DX: A41.9 Sepsis, unspecified organism (principal); E43 Unspecified severe protein-calorie malnutrition; I63.9 Cerebral infarction, unspecified; J69.0 Pneumonitis due to inhalation of food and vomit; G93.40 Encephalopathy, unspecified; E87.0 Hyperosmolality and hypernatremia; I69.354 Hemiplegia and hemiparesis following cerebral infarction affecting left non-dominant side; I47.1 Supraventricular tachycardia; N17.9 Acute kidney failure, unspecified; I12.9 Hypertensive chronic kidney disease with stage 1 through stage 4 chronic kidney disease, or unspecified chronic kidney disease; N18.9 Chronic kidney disease, unspecified; E78.5 Hyperlipidemia, unspecified; E11.22 Type 2 diabetes mellitus with diabetic chronic kidney disease; Z79.4 Long term (current) use of insulin; E86.0 Dehydration; Z66 Do not resuscitate; E78.00 Pure hypercholesterolemia, unspecified; M19.90 Unspecified osteoarthritis, unspecified site; D64.9 Anemia, unspecified; E87.6 Hypokalemia; Z74.01 Bed confinement status; Z79.899 Other long term (current) drug therapy; Z87.440 Personal history of urinary (tract) infections; Z68.34 Body mass index [BMI] 34.0-34.9, adult
CPT/HCPCS: 36245; 51702; 70450; 74018; 74176; 76937; 82270; 82271; 82570; 82728; 83010; 83540; 83550; 83605; 83615; 83735; 84100; 84300; 84540; 85014; 85018; 86677; 86850; 86900; 86901; 86920; 87040; 87070; 87081; 87205; 93005; 94640; 94667; 94669; 94761; 94799; 96374; 96375; 99291; C9113; J0131; J0360; J0696; J0885; J1644; J1815; J1956; J2060; J2250; J2270; J2405; J2543; J2704; J2765; J3370; J3480; J7030; J7050; J7060; P9016